=== PATIENT | female | born 1995 | race Caucasian/White ===

== ENCOUNTER 2018-04-30 06:00 | Inpatient (IN) | payer OTHER ==
[2018-04-30] MEDS: LACTATED RINGER'S 1,000 ML IV ×2 (06:17→14:17)
[2018-04-30] MEDS ORDERED: CARBOPROST 250 MCG INJ IM ×2 (06:30→10:00)
[2018-04-30] MEDS ORDERED: MISOPROSTOL 200 MCG TAB PR ×2 (06:30→10:00)
[2018-04-30] MEDS: AMPICILLIN 2 GM/NS (PMX) 100 ML IV (06:30)
[2018-04-30] MEDS ORDERED: LIDOCAINE 1% (MPF) 30 ML INJ INJ (06:30)
[2018-04-30] MEDS ORDERED: ALBUTEROL HFA 8 GM INHALER INH (06:30)
[2018-04-30] MEDS ORDERED: BUTORPHANOL 2 MG INJ IV (06:30)
[2018-04-30] MEDS ORDERED: METHYLERGONOVINE 0.2 MG INJ IM ×2 (06:30→10:00)
[2018-04-30] MEDS ORDERED: OXYTOCIN 30 UNITS/LR 500 ML IV ×5 (06:30→10:00)
[2018-04-30] MEDS ORDERED: OXYTOCIN 10 UNIT INJ (06:34)
[2018-04-30 07:23] LABS: ADD MAN DIFF? NO
[2018-04-30 07:35] LABS: WHITE BLOOD COUNT 11.1 10^3/ul (4.8-10.8)
[2018-04-30 07:35] LABS: BASOPHILS % 0.4 % (0.0-2.0); EOSINOPHILS # 0.1 10^3/ul (0.0-0.5); EOSINOPHILS % 0.9 % (0.0-7.0); HEMATOCRIT 35.1 % (37.0-47.0); HEMOGLOBIN 10.7 g/dl (12.0-16.0); LYMPHOCYTES # 2.3 10^3/ul (0.8-2.9); LYMPHOCYTES % 20.7 % (15.0-51.0); MEAN CORPUSCULAR HEMOGLOBIN 24.2 pg (29.0-33.0); MEAN CORPUSCULAR HGB CONC 30.5 g/dl (32.0-37.0); MEAN CORPUSCULAR VOLUME 79.2 fl (82.0-101.0); MEAN PLATELET VOLUME 9.8 fl (7.4-10.4); MONOCYTE # 0.8 10^3/ul (0.3-0.9); MONOCYTES % 7.2 % (0.0-11.0); NEUTROPHIL # 7.8 10^3/ul (1.6-7.5); NEUTROPHILS % 70.2 % (39.0-77.0); PLATELET COUNT 266 10^3/UL (140-415); RED BLOOD COUNT 4.43 10^6/ul (4.20-5.40); RED CELL DISTRIBUTION WIDTH 14.5 % (11.5-14.5)
[2018-04-30 07:45] LABS: PROTIME 11.2 Sec (11.9-14.9); PT RATIO 0.9
[2018-04-30 07:46] LABS: PARTIAL THROMBOPLASTIN TIME 24.8 Sec (23.0-35.0)
[2018-04-30 08:21] LABS: HEPATITIS B SURFACE ANTIGEN NEGATIVE (NEGATIVE)
[2018-04-30 08:31] LABS: HIV 1&2 ANTIBODY NEGATIVE (NEGATIVE)
[2018-04-30] MEDS: IBUPROFEN 800 MG TAB PO (09:07)
[2018-04-30] MEDS ORDERED: BENZOCAINE 20% 56 ML SPRAY TOP (10:00)
[2018-04-30] MEDS ORDERED: ZOLPIDEM 5 MG TAB PO (10:00)
[2018-04-30] MEDS ORDERED: WITCH HAZEL/GLYCERIN PAD PR (10:00)
[2018-04-30] MEDS ORDERED: LANOLIN HPA 1 PKT TOP (10:00)
[2018-04-30] MEDS: OXYCODONE/ASPIRIN (4.88/325) TAB PO ×3 (11:23→21:18)
[2018-04-30 11:27] LABS: AMPHETAMINE/METHAMPHETAMINE Negative (NEGATIVE); BARBITURATES Negative (NEGATIVE); BENZODIAZEPINES Negative (NEGATIVE); COCAINE Negative (NEGATIVE)
[2018-04-30] MEDS: IBUPROFEN 600 MG TAB PO ×2 (11:44→18:06)
[2018-04-30 12:42] LABS: CANNABINOIDS Positive (NEGATIVE)
[2018-04-30 12:43] LABS: OPIATES Positive (NEGATIVE)
[2018-04-30] MEDS: ALBUTEROL HFA 8 GM INHALER INH (18:02)
[2018-04-30] MEDS: SENNA/DOCUSATE NA (8.6MG/50MG) TAB PO (21:18)
[2018-04-30 22:12] LABS: RAPID PLASMA REAGIN NONREACTIVE (NR)
[2018-05-01] MEDS: IBUPROFEN 600 MG TAB PO ×5 (00:12→23:44)
[2018-05-01] MEDS: OXYCODONE/ASPIRIN (4.88/325) TAB PO ×4 (02:28→20:22)
[2018-05-01] MEDS: LACTATED RINGER'S 1,000 ML IV (07:48)
[2018-05-01] MEDS: SENNA/DOCUSATE NA (8.6MG/50MG) TAB PO ×2 (08:16→20:22)
[2018-05-01] MEDS: ALBUTEROL HFA 8 GM INHALER INH ×2 (08:20→23:48)
[2018-05-01 08:25] LABS: ADD MAN DIFF? NO
[2018-05-01 08:32] LABS: BASOPHILS % 0.4 % (0.0-2.0); EOSINOPHILS # 0.1 10^3/ul (0.0-0.5); EOSINOPHILS % 1.7 % (0.0-7.0); HEMATOCRIT 25.6 % (37.0-47.0); LYMPHOCYTES # 1.6 10^3/ul (0.8-2.9); LYMPHOCYTES % 20.8 % (15.0-51.0); MEAN CORPUSCULAR HEMOGLOBIN 24.3 pg (29.0-33.0); MEAN CORPUSCULAR HGB CONC 31.3 g/dl (32.0-37.0); MEAN CORPUSCULAR VOLUME 77.8 fl (82.0-101.0); MONOCYTE # 0.6 10^3/ul (0.3-0.9); NEUTROPHIL # 5.2 10^3/ul (1.6-7.5); NEUTROPHILS % 68.7 % (39.0-77.0); PLATELET COUNT 201 10^3/UL (140-415); RED BLOOD COUNT 3.29 10^6/ul (4.20-5.40)
[2018-05-01 08:32] LABS: WHITE BLOOD COUNT 7.5 10^3/ul (4.8-10.8)
[2018-05-01 11:51] LABS: RUBELLA ANTIBODY - IGG 3.11 index; RUBELLA ANTIBODY - IGM <20.00 AU/mL
[2018-05-02] MEDS: IBUPROFEN 600 MG TAB PO ×3 (06:00→15:17)
[2018-05-02] MEDS: DIPHTH/TET/ACEL PERTUSS (ADULT) 0.5 ML VIAL IM* (09:27)
[2018-05-02] MEDS: ALBUTEROL HFA 8 GM INHALER INH (09:34)
[2018-05-02] MEDS: SENNA/DOCUSATE NA (8.6MG/50MG) TAB PO (09:34)
[2018-05-02] MEDS: OXYCODONE/ASPIRIN (4.88/325) TAB PO (12:41)
== END 2018-05-02 16:50 | disposition home or self-care (01) | DRG 807 ==
LOC: OBT 06:00 → L-D 06:00 → OBT 06:05 → L-D 06:05 → PP1 09:16
PROC: 10E0XZZ Delivery of Products of Conception, External Approach (ICD-10-PCS; principal; 2018-04-30)
DX: O60.14X0 Preterm labor third trimester with preterm delivery third trimester, not applicable or unspecified (principal); Z37.0 Single live birth; O77.0 Labor and delivery complicated by meconium in amniotic fluid; O90.81 Anemia of the puerperium; D64.9 Anemia, unspecified; Z3A.36 36 weeks gestation of pregnancy
CPT/HCPCS: 80307; 85025; 85610; 85730; 86592; 86703; 86762; 86850; 86900; 86901; 87340